=== PATIENT | male | born 1990 ===

== ENCOUNTER → 2020-11-25 | Outpatient (CLI) | payer OTHER ==
--- NOTE | 2020-11-25 18:54 | RAD ---
Right hand 3 views, right wrist 3 views. HISTORY: Injury 4 days ago, pain Right wrist 3 views were taken of the right wrist. There is not evidence of an acute fracture or osseous abnormal ity. Right hand 3 views were taken of the right hand. There is not evidence of an acute fracture or osseous abnormali ty. IMPRESSION: 1. Negative right hand. 2. Negative right wrist. Electronically signed by: Antonio Limon MD (11/25/2020 6:52 PM) [facility]
== END ==
LOC: RAD 18:27
PROVIDERS: ATTEND Nurse Practitioner Family
DX: M25.531 Pain in right wrist (principal); M79.641 Pain in right hand
CPT/HCPCS: 73110; 73130